=== PATIENT | female | born 1960 | race Native Hawaiian/Other Pacific Islander ===

== ENCOUNTER 2019-05-16 09:36 | Outpatient (CLI) | payer BC | END 2019-05-16 21:34 | disposition home or self-care (01) | LOC: RAD 09:36 | DX: R05 Cough (principal); R06.02 Shortness of breath ==

== ENCOUNTER 2021-03-29 09:57 | Outpatient (CLI) | payer BC, OTHER | END 2021-03-29 19:03 | disposition home or self-care (01) | LOC: LAB 09:57 | PROVIDERS: ATTEND Nurse Practitioner Family | DX: Z01.818 Encounter for other preprocedural examination (principal); Z11.52 Encounter for screening for COVID-19 | CPT/HCPCS: 87635; G2023; U0003 ==

== ENCOUNTER 2021-07-02 15:02 | Outpatient (CLI) | payer BC | END 2021-07-02 19:17 | disposition home or self-care (01) | LOC: RAD 15:02 | PROVIDERS: ATTEND Nurse Practitioner Family | DX: M25.511 Pain in right shoulder (principal); M25.521 Pain in right elbow ==

== ENCOUNTER 2021-07-23 15:11 | Outpatient (CLI) | payer BC | END 2021-07-23 19:50 | disposition home or self-care (01) | LOC: MAMMO 15:11 | PROVIDERS: ATTEND Obstetrics & Gynecology | DX: E03.9 Hypothyroidism, unspecified (principal); Z12.31 Encounter for screening mammogram for malignant neoplasm of breast ==

== ENCOUNTER 2021-12-03 14:21 | Outpatient (CLI) | payer BC | END 2021-12-03 18:53 | disposition home or self-care (01) | LOC: RAD 14:21 | PROVIDERS: ATTEND Nurse Practitioner Family | DX: R05.3 Chronic cough (principal) ==

== ENCOUNTER 2021-12-24 16:12 | Emergency (ER) | payer BC ==
[~2021-12-24] VITALS: Ht 162.6 cm; Wt 63.5 kg
[2021-12-24 16:16] VITALS: TEMP 96.1
[2021-12-24 16:32] LABS: PLATELET COUNT 219 K/uL (152-353)
[2021-12-24 16:43] LABS: POTASSIUM 2.9 mmol/L (3.6-5.2)
[2021-12-24 16:49] LABS: PARTIAL THROMBOPLASTIN TIME 24.3 SECONDS (24.5-33.6)
[2021-12-24 19:48] VITALS: BP 147/99
== END 2021-12-24 19:48 | disposition home or self-care (01) ==
LOC: ED 16:12
PROVIDERS: Emergency Medicine
DX: R00.2 Palpitations (principal); I49.8 Other specified cardiac arrhythmias; E87.6 Hypokalemia
CPT/HCPCS: 36415; 80053; 84443; 84484; 85027; 85379; 85610; 85730; 93005; 99283

== ENCOUNTER 2022-01-01 09:19 | Outpatient (CLI) | payer BC | END 2022-01-01 19:09 | disposition home or self-care (01) | LOC: RESP 09:19 | PROVIDERS: ATTEND Nurse Practitioner Family | DX: R07.9 Chest pain, unspecified (principal); R06.02 Shortness of breath; R00.2 Palpitations ==

== ENCOUNTER 2022-04-01 10:04 | Outpatient (CLI) | payer BC | END 2022-04-01 18:59 | disposition home or self-care (01) | LOC: RESP 10:04 | PROVIDERS: ATTEND Specialist | DX: R00.2 Palpitations (principal); R07.89 Other chest pain ==

== ENCOUNTER 2022-05-25 18:51 | Observation (INO) | payer BC ==
[~2022-05-25] VITALS: Ht 162.6 cm; Wt 59.0 kg
[2022-05-25 18:51] VITALS: BP 143/90; TEMP 98.6
[2022-05-25 19:30] VITALS: BP 142/80
[2022-05-25 19:36] VITALS: BP 132/71
[2022-05-25 19:36] LABS: PLATELET COUNT 250 K/uL (152-353)
[2022-05-25 19:39] LABS: POTASSIUM 3.5 mmol/L (3.6-5.2)
[2022-05-25 19:59] LABS: PARTIAL THROMBOPLASTIN TIME 24.3 SECONDS (24.5-33.6)
[2022-05-25 20:16] VITALS: BP 127/70
[2022-05-25 20:25] VITALS: BP 133/72
[2022-05-25 23:20] VITALS: BP 136/61; TEMP 97.9; Ht 162.6 cm; Wt 59.0 kg
[2022-05-26] VITALS: BP 115/58; TEMP 98.3
[2022-05-26 04:00] VITALS: BP 117/62; TEMP 97.8
[2022-05-26 08:00] VITALS: BP 118/63; TEMP 97.7
[2022-05-26] MEDS ORDERED: LEVO0.0529 PO ×2 (10:12)
[2022-05-26] MEDS ORDERED: BENAZEPRIL HYDR1 TA1 PO ×2 (10:12)
[2022-05-26] MEDS ORDERED: TRICOR145 M1 PO ×2 (10:21)
[2022-05-26] MEDS ORDERED: CRESTOR20 MG PO ×2 (10:22)
[2022-05-26] MEDS ORDERED: VALA500T2 PO ×2 (10:22)
[2022-05-26] MEDS ORDERED: ESTRADIOL0.1 MG/24 TD ×2 (10:27)
[2022-05-26] MEDS ORDERED: MOUNJARO ×2 (10:28)
[2022-05-26] MEDS ORDERED: BAC 50-325-40 M1 TAB PO ×2 (10:28)
[2022-05-26] MEDS ORDERED: ALPR0.5T24 PO ×3 (11:39→11:49)
[2022-05-26] MEDS ORDERED: Zolpidem Tartrate PO (11:45)
[2022-05-26] MEDS ORDERED: CITA20TA2 PO ×3 (11:45→11:50)
[2022-05-26] MEDS ORDERED: PANTOPRAZOLE 40MG TA PO ×3 (11:46→11:50)
[2022-05-26] MEDS ORDERED: ZOLPIDEM TARTRATE PO ×2 (11:50)
[2022-05-26] MEDS ORDERED: MONT10TA PO ×2 (11:51)
[2022-05-26] MEDS ORDERED: TOPAMAX50 MG PO ×2 (11:51)
[2022-05-26] MEDS ORDERED: ONDANSETRON ODT PO ×2 (11:52)
== END 2022-05-26 13:30 | disposition home or self-care (01) ==
LOC: ED 18:51 → MED/SURG 20:30
PROVIDERS: ADMIT Internal Medicine; ATTEND Internal Medicine
DX: R00.0 Tachycardia, unspecified (principal); I10 Essential (primary) hypertension; R55 Syncope and collapse; R42 Dizziness and giddiness; R00.2 Palpitations
CPT/HCPCS: 80053; 81002; 84484; 85027; 85379; 85610; 85730; 87635; 93005; 99220; 99284; A9576; G0378; J2060; U0003

== ENCOUNTER 2022-05-26 13:41 | Outpatient (CLI) | payer BC ==
[~2022-05-26 13:41] MED LIST: ALPR0.5T24 PO; BAC 50-325-40 M1 TAB PO; BENAZEPRIL HYDR1 TA1 PO; CITA20TA2 PO; CRESTOR20 MG PO; ESTRADIOL0.1 MG/24 TD; LEVO0.0529 PO; MONT10TA PO; MOUNJARO; ONDANSETRON ODT PO; PANTOPRAZOLE 40MG TA PO; TOPAMAX50 MG PO; TRICOR145 M1 PO; VALA500T2 PO; ZOLPIDEM TARTRATE PO; Zolpidem Tartrate PO
== END 2022-05-26 19:02 | disposition home or self-care (01) ==
LOC: US 13:41
PROVIDERS: ATTEND Nurse Practitioner Family
DX: R42 Dizziness and giddiness (principal)